=== PATIENT | female | born 1995 | race Caucasian/White ===

== ENCOUNTER 2018-12-14 18:51 | Emergency (ER) | payer OTHER ==
[~2018-12-14] VITALS: Ht 160 cm; Wt 75.7 kg
[~2018-12-14 18:51] MED LIST: IBUP-1542 PO
[2018-12-14 18:57] VITALS: Ht 160 cm; Wt 75.7 kg
[2018-12-14] MEDS ORDERED: KETOROLAC 30 MG INJ IM STA (19:48)
[2018-12-14 22:35] VITALS: BP 111/65; PULSE 68; RESP 18
== END 2018-12-14 22:35 | disposition home or self-care (01) ==
LOC: FTE 18:51
DX: S20.219A Contusion of unspecified front wall of thorax, initial encounter (principal); W10.8XXA Fall (on) (from) other stairs and steps, initial encounter; Y92.9 Unspecified place or not applicable
CPT/HCPCS: 71110; 81025; 96372; J1885; Z7502